=== PATIENT | female | born 1975 | race Caucasian/White ===

== ENCOUNTER 2016-07-07 13:08 | Emergency (ER) | payer OTHER ==
[2016-07-07] MEDS ORDERED: BENZ100C PO (14:10)
[2016-07-07] MEDS ORDERED: AZIT250T6 PO (14:10)
[2016-07-07] MEDS ORDERED: PRED20TA PO (14:10)
[2016-07-07] MEDS ORDERED: PROAIR HFA8.5 GM INH (14:10)
--- NOTE | 2016-07-07 14:10 | PHYS DOC ---
Adult General Chief Complaint Chief Complaint: Congestion HPI HPI Patient is a 41 year old female with complaint of cough and congestion for 3 days. She is a smoker. She states she does have a history of asthma. She denies antibiotic use within the past 30 days. She denies previous hospitalizations due to asthma problems. Review of Systems Review of Systems Constitutional: Denies fever or chills [] Eyes: Denies change in visual acuity, redness, or eye pain [] HENT: Denies nasal congestion or sore throat [] Respiratory: Denies cough or shortness of breath [] Cardiovascular: No additional information not addressed in HPI [] GI: Denies abdominal pain, nausea, vomiting, bloody stools or diarrhea [] : Denies dysuria or hematuria [] Musculoskeletal: Denies back pain or joint pain [] Integument: Denies rash or skin lesions [] Neurologic: Denies headache, focal weakness or sensory changes [] Endocrine: Denies polyuria or polydipsia [] Allergies Allergies Allergies Coded Allergies Type Severity Reaction Last Updated Verified No Known Drug Allergies 07/07/16 No Physical Exam Physical Exam Constitutional: Well developed, well nourished, no acute distress, non-toxic appearance. HENT: Normocephalic, atraumatic, bilateral external ears normal, oropharynx moist, no oral exudates. Clear rhinorrhea. Boggy nasal mucosa. Sinuses are nontender to palpation. Eyes: PERRLA, EOMI, conjunctiva normal, no discharge. [] Neck: Normal range of motion, no tenderness, supple, no stridor. [] Cardiovascular:Heart rate regular rhythm, no murmur [] Lungs & Thorax: There is no evidence respiratory distress respiratory fatigue. There is scant amount of central coarse wheezing clears with deep breath and cough. There is no accessory muscle use. Abdomen: Bowel sounds normal, soft, no tenderness, no masses, no pulsatile masses. [] Skin: Warm, dry, no erythema, no rash. [] Back: No tenderness, no CVA tenderness. [] Extremities: No tenderness, no cyanosis, no clubbing, ROM intact, no edema. [] Neurologic: Alert and oriented X 3, normal motor function, normal sensory function, no focal deficits noted. [] Psychologic: Affect normal, judgement normal, mood normal. [] EKG EKG [] Radiology/Procedures Radiology/Procedures [] Course & Med Decision Making Course & Med Decision Making Pertinent Labs and Imaging studies reviewed. (See chart for details) [] Dragon Disclaimer Dragon Disclaimer This electronic medical record was generated, in whole or in part, using a voice recognition dictation system. Departure Departure Impression: Primary Impression: Upper respiratory infection Additional Impression: Smoking Disposition: HOME, SELF-CARE Condition: GOOD Referrals: NO PCP (PCP) Patient Instructions: Smoking Cessation, Tips For Success, Smoking, You Can Quit, [id number], Upper Respiratory Infection, Adult, [id number] Additional Instructions: 1. Take medication as prescribed. 2. Please review the discharge instructions for reasons to return to the emergency room. 3. Call a primary care doctor's office in the morning to schedule follow-up appointment for reevaluation. Please use the pamphlet provided for assistance. Scripts Albuterol Sulfate (Proair Hfa Inhaler)8.5 Gm Hfa.[id number].[email or web address] Puff INH PRN Q6HRS PRN SHORTNESS OF BREATH #1 INHALER Ref 0 Prov:IRIS CERON 07/07/16 Benzonatate (Tessalon Perle)100 Mg [id number] Mg PO TID PRN COUGH #21 CAP Prov:IRIS CERON 07/07/16 Prednisone 20 Mg Tablet2 Tab PO DAILY 5 Days Prov:IRIS CERON 07/07/16 Azithromycin (Azithromycin Tablet)250 Mg Tablet1 Pkg PO UD #6 TAB Prov:IRIS CERON 07/07/16 Problem Qualifiers IRIS CERON Jul 07, 2016 14:10
== END 2016-07-07 14:10 | disposition home or self-care (01) ==
LOC: ER 13:08
DX: J06.9 Acute upper respiratory infection, unspecified (principal); J45.909 Unspecified asthma, uncomplicated; F17.200 Nicotine dependence, unspecified, uncomplicated
CPT/HCPCS: 99283